=== PATIENT | female | born 1980 | race Caucasian/White ===

== ENCOUNTER 2016-09-11 16:36 | Emergency (ER) | payer BC ==
[2016-09-11] MEDS ORDERED: OPTIRAY 350 100 ML VIAL HMH IV ONE (16:37)
[2016-09-11] MEDS ORDERED: SODIUM CHLORIDE 0.9% 1,000 ML ONE (17:11)
[2016-09-11] MEDS ORDERED: DILAUDID 1 MG/ML AMP ONE (18:30)
== END 2016-09-11 21:03 | disposition home or self-care (01) ==
LOC: ER 16:36
CPT/HCPCS: 36415; 70450; 71260; 72125; 74177; 80053; 82150; 85025; 96361; 96374